=== PATIENT | female | born 1995 | race Caucasian/White ===

== ENCOUNTER 2021-12-30 00:25 | Emergency (ER) | payer MEDICAID ==
[~2021-12-30] VITALS: Ht 162.6 cm; Wt 109.8 kg
[2021-12-30 00:37] VITALS: BP 134/69
--- NOTE | 2021-12-30 00:39 | NUR ---
Patient being evaluated by physician at bedside.
--- NOTE | 2021-12-30 00:43 | NUR ---
PT TO LOBBY TO A/W BED
--- NOTE | 2021-12-30 01:40 | NUR ---
Patient discharged with v/s stable. Written and verbal after care instructions given and explained. Patient verbalized understanding. Ambulatory with steady gait. All questions addressed prior to discharge. Advised to follow up with PMD.
== END 2021-12-30 01:40 | disposition home or self-care (01) ==
LOC: MED 00:25
DX: M79.645 Pain in left finger(s) (principal)
CPT/HCPCS: 73140; 99283